=== PATIENT | female | born 1995 | race African-American/Black ===

== ENCOUNTER 2016-12-06 10:29 | Emergency (ER) | payer OTHER ==
[~2016-12-06] VITALS: Ht 162.6 cm; Wt 72.6 kg
[~2016-12-06 10:29] MED LIST: IBUPROFEN 400400 M1 PO; NOHOMEMEDICATIONS; NORCO 5-325 TA1 EACH PO
[2016-12-06] MEDS ORDERED: BIRTH CONTROL PO (11:21)
[2016-12-06 11:41] LABS: ABSOLUTE NEUTROPHILS 3.2 thou/uL (1.4-8.2); BASOPHILS 0.4 % (0.0-2.0); HEMOGLOBIN 15.3 gm/dL (12.0-15.0); LYMPHOCYTES 15.2 % (24.0-44.0); MCH 27.9 pg (26.0-34.0); MCV 82.2 fL (80.0-100.0); MONOCYTES 10.1 % (1.0-8.0); PLATELET COUNT 200 thou/uL (150-400); POLYS 74.3 % (36.0-66.0); RBC 5.48 mil/uL (4.20-5.00); RDW 13.4 % (10.5-14.5); WBC 4.3 thou/uL (4.0-11.0)
[2016-12-06 11:44] LABS: CALCIUM 9.3 mg/dL (8.5-10.1); CREATININE 1.1 mg/dL (0.6-1.3); MANUAL DIFF NO; POTASSIUM 3.9 mmol/L (3.5-5.1)
[2016-12-06 12:13] LABS: URINE BILIRUBIN NEGATIVE (Negative); URINE BLOOD NEGATIVE (Negative); URINE COLOR YELLOW; URINE GLUCOSE-RANDOM* NEGATIVE (Negative); URINE KETONES TRACE (Negative); URINE LEUKOCYTES-REFLEX NEGATIVE (Negative); URINE PROTEIN (DIPSTICK) 2+ (Negative); URINE SPECIFIC GRAVITY 1.025 (1.003-1.035); URINE UROBILINOGEN 0.2 E.U./dl (0.2-1.0)
[2016-12-06 12:26] LABS: SQUAMOUS 0-3 Few /LPF (0-3)
[2016-12-06 12:27] LABS: CASTS None Seen /LPF (None Seen); CRYSTALS None Seen /LPF (None Seen); URINE RBC None Seen /HPF (0-2); URINE WBC-REFLEX 0-5 Rare /HPF (0-5)
[2016-12-06] MEDS ORDERED: IBUPROFEN 800800 M1 PO (13:40)
[2016-12-06 13:43] VITALS: BP 117/57
== END 2016-12-06 13:59 | disposition home or self-care (01) ==
LOC: ER 10:29
PROVIDERS: Emergency Medicine
DX: B34.9 Viral infection, unspecified (principal); Z88.0 Allergy status to penicillin; Z88.1 Allergy status to other antibiotic agents